=== PATIENT | female | born 1955 | race Caucasian/White ===

== ENCOUNTER → 2018-02-18 | Outpatient (CLI) | payer BC ==
--- NOTE | 2018-03-11 08:46 | Diagnostic Imaging Report ---
THIS REPORT HAS BEEN AMENDED. #[id number] - [id number] #BILATERAL DIGITAL SCREENING MAMMOGRAM WITH CAD: 02/18/2018 CLINICAL: Routine screening. No prior exams were available for comparison. Current study contains 4 films. The tissue of both breasts is predominantly fatty. Current study was also evaluated with a Computer Aided Detection (CAD) system. There is an amorphous indeterminate calcification in the right breast at 6 o'clock middle depth. No other significant masses, calcifications, or other findings are seen in either breast. IMPRESSION: INCOMPLETE: NEEDS ADDITIONAL IMAGING EVALUATION The amorphous calcification in the right breast is indeterminate. Spot magnification views are recommended. The patient has had a prior mammogram in December 2016-if these become available for review then additional studies may not be necessary. The patient will be contacted by the Mammography Department to schedule this appointment. Johnny Medeiros Jr., D.O. cw/:03/10/2018 07:52:23 [employer] Maintenance: Nai MIRAMONTES)(Jose Guadalupe), [facility] letter sent: Additional Imaging Needed Mammogram BI-RADS: 0 Indeterminate AMENDMENT: 04/06/2018 Johnny Medeiros Jr., D.O. Comparison to outside mammograms dated 01/18/2017 from [facility] is now possible as they have become available. There is no significant interval change from the old studies. The calcifications in question were previously present. There is no evidence of malignancy. Amended BI-RADS: 2 Benign letter sent: Compared to Prior B9
== END ==
LOC: MAMMO 12:29
PROVIDERS: ATTEND Family Medicine Sports Medicine
DX: Z12.31 Encounter for screening mammogram for malignant neoplasm of breast (principal)
CPT/HCPCS: 77067

== ENCOUNTER → 2019-03-08 | Outpatient (CLI) | payer OTHER | LOC: MAMMO 08:57 | PROVIDERS: ATTEND Family Medicine Sports Medicine | DX: Z12.31 Encounter for screening mammogram for malignant neoplasm of breast (principal) | CPT/HCPCS: 77067 ==

== ENCOUNTER → 2019-04-16 | Outpatient (CLI) | payer OTHER ==
--- NOTE | 2019-04-20 07:47 | Diagnostic Imaging Report ---
#[id number] - [id number] #UNILATERAL RIGHT DIGITAL DIAGNOSTIC MAMMOGRAM WITH SPOT COMPRESSION: 04/16/2019 Comparison is made to exams dated: 03/08/2019 mammogram and 02/18/2018 mammogram - [facility]. There are scattered fibroglandular elements in the right breast. Apparent mass resolves on spot compression images. The findings are suggestive of a summation shadow. No significant masses, calcifications, or other findings are seen in the breast. There has been no significant interval change. IMPRESSION: BENIGN Additional views demonstrate no underlying abnormality. There is no mammographic evidence of malignancy. A 1 year screening mammogram is recommended. The patient will be notified by letter of the results. RAHEEM obrien/catrina:04/19/2019 17:35:06 Care Manager Cna: Nai MIRAMONTES)(Jose Guadalupe), [facility] letter sent: Compared to Prior B9 Mammogram BI-RADS: 2 Benign
== END ==
LOC: MAMMO 09:04
PROVIDERS: ATTEND Family Medicine Sports Medicine
DX: N64.89 Other specified disorders of breast (principal)

== ENCOUNTER → 2020-03-22 | Outpatient (CLI) | payer OTHER | LOC: MAMMO 09:13 | PROVIDERS: ATTEND Family Medicine Sports Medicine | DX: Z12.31 Encounter for screening mammogram for malignant neoplasm of breast (principal) | CPT/HCPCS: 77067 ==

== ENCOUNTER → 2020-05-22 | Outpatient (CLI) | payer OTHER | LOC: DX 09:10 | PROVIDERS: ATTEND Obstetrics & Gynecology | DX: M85.88 Other specified disorders of bone density and structure, other site (principal); N95.1 Menopausal and female climacteric states | CPT/HCPCS: 77080 ==

== ENCOUNTER → 2021-03-26 | Outpatient (CLI) | payer OTHER | LOC: MAMMO 10:06 | PROVIDERS: ATTEND Family Medicine Sports Medicine | DX: Z12.31 Encounter for screening mammogram for malignant neoplasm of breast (principal) | CPT/HCPCS: 77067 ==

== ENCOUNTER → 2024-09-09 | Outpatient (REF) | payer OTHER | LOC: MAMMO 10:24 | PROVIDERS: ATTEND Family Medicine Sports Medicine | DX: Z12.31 Encounter for screening mammogram for malignant neoplasm of breast (principal) | CPT/HCPCS: 77067 ==